=== PATIENT | male | born 1965 | race Caucasian/White ===

== ENCOUNTER → 2022-04-29 | Outpatient (CLI) | payer OTHER, SELFPAY ==
[2022-04-29 16:17] LABS: Bacteria 0 SEEN /hpf (None Seen); Mucous, Urine 0 SEEN /hpf (<or=2+); Red Blood Cells-Urine 0 SEEN /hpf (0-5); Squamous Epithelial Cells - UA 0 SEEN /hpf (0-5); White Blood Cells 0 SEEN /hpf (0-5)
[2022-04-29 17:45] LABS: Absolute Lymphocyte Count 12.48 X10^3/uL (0.83-4.51); Absolute Neutrophil Count 6.6 X10^3/uL (2.0-7.7); Basophil# 0.07 X10^3/uL; Basophil% 0.3 % (0-1); Eosinophil# 0.31 X10^3/uL; Eosinophils% 1.5 % (0-5); Hematocrit 42.8 % (40-54); Hemoglobin 14.2 g/dL (13.0-16.5); Lymphocyte # 12.48 X10^3/ul (0.83-4.51); Lymphocyte % 60.8 % (19-41); Mean Corp Hgb Conc 33.2 g/dL (32-36); Mean Corpuscular Hgb 31.1 pg (27.0-32.0); Mean Corpuscular Volume 93.7 fL (80-94); Mean Platelet Vol. 11.1 fl (6.2-12.0); Monocyte% 4.9 % (0-10); NRBC Flagged by Analyzer 0 % (0-5); Neutrophil # 6.61 X10^3/uL (2.7-7.7); Neutrophil % 32.3 % (47-70); POSITIVE DIFFERENTIAL YES; POSITIVE MORPHOLOGY YES; Platelet Count 206 K/mm3 (150-450); RBC Distribution Width CV 12.9 % (11.6-14.6); RBC Distribution Width SD 43.8 fl (35.1-43.9); Red Blood Count 4.57 M/mm3 (4.6-6.2); White Blood Count 20.5 K/mm3 (4.4-11.0)
[2022-04-29 17:52] LABS: Color, Urine Yellow (Yellow); Glucose, Dipstick Normal (Normal); Ketone-Dipstick Negative (Negative); Leukocyte Esterase-Dipstick Negative /ul (Negative); Nitrite-Dipstick Negative (Negative); Occult Blood-Urine Negative /ul (Negative); Protein-Dipstick Negative (Negative); Urine Bilirubin Dipstick Negative (Negative); Urine Clarity Clear (Clear); Urine Urobilinogen Normal (Normal)
[2022-04-29 18:07] LABS: Differential Indicated SCAN CRITERIA MET
[2022-04-29 18:24] LABS: Differential Comment SCANNED
[2022-04-29 18:28] LABS: ALB/GLOB Ratio 1.1 RATIO (0.9-2.4); AST(SGOT) 18 U/L (15-37); Alanine Aminotransfer ALT/SGPT 36 U/L (16-61); Albumin, Serum 3.7 g/dL (3.2-5.0); Alkaline Phosphatase 117 U/L (45-117); Anion Gap 8 (5-15); BUN 12 mg/dL (7-18); BUN/Creat Ratio 12.8 RATIO (10-20); Calcium,Total 8.7 mg/dL (8.5-10.1); Chloride 109 mmol/L (98-107); Cholesterol 145 mg/dL (200); Creatinine, Serum 0.94 mg/dL (0.70-1.30); EST Glomerular Filtration Rate 89 mL/min (>60); Est Glom Filt Rate - Afr Amer 107 mL/min (>60); Globulin 3.3 g/dL (2.2-4.2); Glucose 95 mg/dL (74-106); High Density Lipoprotein 31 mg/dL; Magnesium 2.2 mg/dL (1.6-2.6); PSA,Total - Annual Screen 0.54 ng/mL (0.00-4.00); Potassium 3.5 mmol/L (3.5-5.1); Sodium Level 140 mmol/L (136-145); Thyroid Stim Hormone (TSH) 1.13 uIU/mL (0.358-3.74); Triglycerides 257 mg/dL; Very Low Density Lipoprotein 51 mg/dL (5-40)
[2022-04-29 18:44] LABS: Atypical Lymphocyte 1+ %; Smudge Cells 1+
[2022-05-03 08:53] LABS: Pathologist Review Reviewed
== END | disposition home or self-care (01) ==
LOC: MTLAB 15:30
PROVIDERS: PCP Family Medicine; Referring Provider Family Medicine; Visit Provider Family Medicine
DX: F17.200 Nicotine dependence, unspecified, uncomplicated (principal); I10 Essential (primary) hypertension; Z12.5 Encounter for screening for malignant neoplasm of prostate
CPT/HCPCS: 36415; 80053; 80061; 81001; 83735; 84153; 84443; 85025; G0103

== ENCOUNTER → 2022-05-02 | Outpatient (CLI) | payer OTHER, SELFPAY ==
[2022-05-02 17:32] LABS: Absolute Lymphocyte Count 13.28 X10^3/uL (0.83-4.51); Absolute Neutrophil Count 6.4 X10^3/uL (2.0-7.7); Basophil# 0.08 X10^3/uL; Basophil% 0.4 % (0-1); Eosinophil# 0.26 X10^3/uL; Eosinophils% 1.2 % (0-5); Hematocrit 43.8 % (40-54); Hemoglobin 14.5 g/dL (13.0-16.5); Lymphocyte # 13.28 X10^3/ul (0.83-4.51); Lymphocyte % 62.9 % (19-41); Mean Corp Hgb Conc 33.1 g/dL (32-36); Mean Corpuscular Hgb 30.9 pg (27.0-32.0); Mean Corpuscular Volume 93.4 fL (80-94); Monocyte# 0.87 X10^3/uL; Monocyte% 4.1 % (0-10); NRBC Flagged by Analyzer 0 % (0-5); Neutrophil # 6.42 X10^3/uL (2.7-7.7); Neutrophil % 30.4 % (47-70); POSITIVE DIFFERENTIAL YES; POSITIVE MORPHOLOGY YES; Platelet Count 205 K/mm3 (150-450); RBC Distribution Width SD 43.9 fl (35.1-43.9); Red Blood Count 4.69 M/mm3 (4.6-6.2); White Blood Count 21.1 K/mm3 (4.4-11.0)
[2022-05-02 17:49] LABS: Differential Indicated SCAN CRITERIA MET
[2022-05-02 18:12] LABS: Differential Comment SCANNED; Smudge Cells RARE
== END | disposition home or self-care (01) ==
LOC: MFPLAB 15:39
PROVIDERS: PCP Family Medicine; Visit Provider Family Medicine
DX: D72.829 Elevated white blood cell count, unspecified (principal)
CPT/HCPCS: 36415; 85025

== ENCOUNTER → 2022-05-10 | Outpatient (CLI) | payer OTHER, SELFPAY ==
[2022-05-10 15:43] LABS: Absolute Lymphocyte Count 11.85 X10^3/uL (0.83-4.51); Absolute Neutrophil Count 5.3 X10^3/uL (2.0-7.7); Basophil# 0.06 X10^3/uL; Basophil% 0.3 % (0-1); Eosinophil# 0.19 X10^3/uL; Eosinophils% 1.1 % (0-5); Hematocrit 45.3 % (40-54); Hemoglobin 15.3 g/dL (13.0-16.5); Lymphocyte # 11.85 X10^3/ul (0.83-4.51); Lymphocyte % 65.7 % (19-41); Mean Corp Hgb Conc 33.8 g/dL (32-36); Mean Corpuscular Hgb 31.4 pg (27.0-32.0); Mean Platelet Vol. 10.9 fl (6.2-12.0); Monocyte# 0.61 X10^3/uL; Monocyte% 3.4 % (0-10); NRBC Flagged by Analyzer 0 % (0-5); Neutrophil # 5.27 X10^3/uL (2.7-7.7); Neutrophil % 29.2 % (47-70); POSITIVE DIFFERENTIAL YES; POSITIVE MORPHOLOGY YES; Platelet Count 215 K/mm3 (150-450); RBC Distribution Width CV 12.9 % (11.6-14.6); RBC Distribution Width SD 44.1 fl (35.1-43.9); Red Blood Count 4.87 M/mm3 (4.6-6.2)
[2022-05-10 15:58] LABS: Differential Indicated SCAN CRITERIA MET
[2022-05-10 16:41] LABS: Differential Comment SCANNED
== END | disposition home or self-care (01) ==
PROVIDERS: PCP Family Medicine; Referring Provider Family Medicine; Visit Provider Family Medicine
DX: D72.829 Elevated white blood cell count, unspecified (principal)
CPT/HCPCS: 36415; 85025

== ENCOUNTER → 2022-05-12 | Outpatient (CLI) | payer OTHER, SELFPAY ==
--- NOTE | 2022-05-12 07:52 | CT_ITS ---
STUDY: LOW DOSE CT LUNG CANCER SCREENING REASON FOR EXAM: Male, 56 years old. NICOTINE DEPENDENCY. 1PPD X 30 YEARS RADIATION DOSAGE (If Supplied By Facility): CTDIvol = ( 2.39 ) mGy, DLP = ( 89.95 ) mGycm TECHNIQUE: No contrast was administered. Low dose technique was utilized (average mAS-38 and kVp 120). 1.25 mm axial source images with a slice interval of 1.25-mm were reconstructed in lung windows. 2.5 mm axial source images with a slice interval of 2.5-mm were reconstructed in lung windows. 5.0 mm axial source images with a slice interval of 5.0-mm were reconstructed in soft tissue windows. COMPARISON: None. NODULES: No suspicious nodules are seen. Emphysema: Unremarkable Endobronchial lesion: Unremarkable Aorta: Unremarkable CORONARY ARTERIES: Coronary artery calcification is not seen. Heart: Unremarkable Pulmonary artery: Unremarkable Mediastinal nodes: Unremarkable Other chest and abdominal findings: CT/Low Dose CT Lung Screening IMPRESSION: Lung-RADS category 2 - Continue annual screening with LDCT in 12 months. IMPORTANT NOTES FOR USE: ACR Lung-RADS Version 1.1 Assessment Categories Release Date: 2018 Category: Coded 0-4 bases on nodule(s) with highest degree of suspicion. Negative screen is defined as categories 1 and 2; a positive screen is defined as categories 3 and 4. Category 3 and 4A nodules that are unchanged on interval CT should be coded as category 2, and individuals returned to screening in 12 months. Category 4X: Category 3 or 4 nodules with additional imaging findings that increase the suspicion of lung cancer, such as spiculation, GGN that doubles in size in 1 year, enlarged lymph notes, etc. Category Modifiers: S (significant finding unrelated to lung cancer) Electronically Signed: Juan Manuel Rivas MD at 15:19 EDT ,
== END | disposition home or self-care (01) ==
PROVIDERS: PCP Family Medicine; Referring Provider Family Medicine; Visit Provider Family Medicine
DX: F17.210 Nicotine dependence, cigarettes, uncomplicated (principal)
CPT/HCPCS: 71271

== ENCOUNTER 2022-07-22 07:36 | Day surgery (SDC) | payer OTHER, SELFPAY ==
[2022-07-22] VITALS (9 sets, daily range): BP systolic 112–164; BP diastolic 48–100; PULSE 54–67; RESP 16; TEMP 36.3–36.6; O2SAT 91–100; BMI 27.8
--- NOTE | 2022-07-22 | COLBX_PTH ---
PATIENT: MARCO A BRAY Jr. LOC: EN U#:[id number] AGE/SX: 56/M ROOM: RE07/22/[address]: Dr. Ankit Victor MD : 1965 BED: DIS: 07/22/2022 SPEC #: [id number] RECD: 07/22/22 13:17 STATUS: TUAN HURTADOPerry #: [id number] STEVE: 07/22/22 00:[address]: Ankit Victor DEPT: SURGICAL PATHOLOGY RECD BY: Gallo Luis ENTERED: 07/22/22 13:17 SP TYPE: COLON BX OTHR DR: Dr. Twan Do MD Tissues: Rectum, NOS Procedures: Surgery Specimen Level IV HEADER OPERATION: Colonoscopy ? open access (MAC), polypectomy and biopsy PRE-OP DIAGNOSIS: Screening TISSUE SUBMITTED: Rectal polyp biopsy MICROSCOPIC DIAGNOSIS Rectal polyp, polypectomy: Fragments of hyperplastic polyp. SJ:radha 07/25/2022 MICROSCOPIC DESCRIPTION Slides are reviewed. GROSS DESCRIPTION Received in fixative is one container labeled with the patient's name and designated rectal polyp biopsy. The specimen consists of multiple irregular fragments of light mahmood soft tissue that in aggregate measure 0.6 x 0.3 x 0.1 cm. The specimen is totally submitted in one cassette. / SJ:radha 07/22/2022 TC:1 CPT: 38934
[2022-07-22] MEDS: Lactated Ringers 1,000 ML 15 ML IV (07:59)
--- NOTE | 2022-07-22 08:59 | PCM.HP.STD ---
[facility] - General General Date of Service: 07/22/22 Chief Complaint: Screening for intestinal cancer HPI Narrative MARCO A BRAY, is a 56 M who presents via open access today for screening colonoscopy. He has never had a previous colonoscopy. There is no definitive family history of colon polyps or cancer. He denies abdominal pain or bright red blood per rectum or melena. He otherwise enjoys good health. [facility] Medical History (Updated 07/20/22 @ 13:37 by Kita Krueger) Blood disorder CLL (chronic lymphocytic leukemia) Former smoker History of ulceration HTN (hypertension) Wears dentures Home Medications NK 06/13/22 [History Last Taken Unknown] Allergy/AdvReac Type Severity Reaction Status Date / Time No Known Allergies Allergy Verified 07/22/22 07:52 Family History (Updated 06/13/22 @ 08:59 by Toshia Silver) Mother CVA (cerebral vascular accident) Father COPD (chronic obstructive pulmonary disease) Cardiac disease Surgical History (Updated 06/13/22 @ 08:58 by Toshia Silver) History of hand surgery Hx of cholecystectomy Hx of wisdom tooth extraction Social History (Updated 06/13/22 @ 09:00 by Toshia Silver) household members: spouse current occupational status: employed Smoking Status: Former smoker ROS Constitutional Constitutional: Reports systems reviewed and no addt'l complaints, except as documented Cardiovascular Cardiovascular: Denies chest pain Respiratory/Chest Respiratory/Chest: Denies shortness of breath at rest Gastrointestinal Gastrointestinal: Denies abdominal pain, change in bowel habits, hematochezia or melena Vital Signs Vital Signs Vital Signs: 07/22/22 07:52 07/22/22 07:52 Temperature 97.8 F Temperature Source Temporal Pulse Rate 54 L Respiratory Rate 16 Respiratory Pattern Normal Blood Pressure 164/92 H Blood Pressure Mean 116 Blood Pressure Source Monitor Blood Pressure Position Semi-Fowlers Blood Pressure Location Left Arm Pulse Ox 100 Oxygen Delivery Method Room Air Weight Weight: 188 lb 4.396 oz Body Mass Index (BMI) 27.8 Physical Exam Const alert, oriented x3 and no apparent distress General Appearance: cooperative and comfortable Eyes General Eye: normal appearance of both eyes Neck General: normal visual inspection Chest inspection of chest normal Resp Effort and Inspection: able to speak in complete sentences and symmetric chest movement Auscultation: clear to auscultation bilaterally Cardio regular rate and regular rhythm GI soft to palpation, non-tender and non-distended Extremity no calf tenderness Neuro oriented x3 Psych thought process normal Assessment & Plan Assessment/Plan (1) Encounter for screening for malignant neoplasm of colon: PLAN: The patient presents for screening colonoscopy today with possible biopsy or polypectomy as indicated. He is aware of the technique, benefit, risk, alternatives. He presents via open access today. We will proceed as noted. Ankit Victor M.D., F.A.C.S.
--- NOTE | 2022-07-22 09:37 | OP.COLON_ITS ---
Patient Name: Hero Alicia Procedure Date: 07/22/2022 9:01 AM Date of : 1965 Age: 56 Procedure: Colonoscopy Indications: Screening for colorectal malignant neoplasm Providers: Ankit Victor MD Referring MD: Ankit Victor MD Medicines: See the Anesthesia note for documentation of the administered medications Patient Profile: Last Colonoscopy: none. The patient's first colonoscopy is today. Complications: No immediate complications. Procedure: Pre-Anesthesia Assessment: - Prior to the procedure, a History and Physical was performed, and patient medications and allergies were reviewed. The patient's tolerance of previous anesthesia was also reviewed. The risks and benefits of the procedure and the sedation options and risks were discussed with the patient. All questions were answered, and informed consent was obtained. Prior Anticoagulants: The patient has taken no previous anticoagulant or antiplatelet agents. ASA Grade Assessment: II - A patient with mild systemic disease. After reviewing the risks and benefits, the patient was deemed in satisfactory condition to undergo the procedure. After I obtained informed consent, the scope was passed under direct vision. Throughout the procedure, the patient's blood pressure, pulse, and oxygen saturations were monitored continuously. The was introduced through the anus and advanced to the cecum, identified by appendiceal orifice and ileocecal valve. The colonoscopy was somewhat difficult due to a tortuous colon. The patient tolerated the procedure well. The quality of the bowel preparation was good. The ileocecal valve and the appendiceal orifice were photographed. Scope In: 9:13:13 AM Scope Withdrawal Time 0 hours 13 minutes 22 seconds Scope Out: 9:32:15 AM Total Procedure Duration Time 0 hours 19 minutes 2 seconds Findings: The digital rectal exam findings include non-thrombosed external hemorrhoids and internal hemorrhoids (Grade I). Pertinent negatives include normal prostate (size, shape, and consistency). A 4 mm polyp was found in the rectum. The polyp was sessile. The polyp was removed with a cold biopsy forceps. Resection and retrieval were complete. The colon (entire examined portion) was moderately tortuous. Advancing the scope required using manual pressure. Impression: - Non-thrombosed external hemorrhoids and internal hemorrhoids (Grade I) found on digital rectal exam. - One 4 mm polyp in the rectum, removed with a cold biopsy forceps. Resected and retrieved. - Tortuous colon. Recommendation: - Discharge patient to home. - Resume previous diet. - Continue present medications. - Repeat colonoscopy in 5 years for surveillance based on pathology results. - Telephone my office for pathology results in 1 week. Procedure Code(s): --- Professional --- 32669, Colonoscopy, flexible; with biopsy, single or multiple Diagnosis Code(s): --- Professional --- Z12.11, Encounter for screening for malignant neoplasm of colon K64.0, First degree hemorrhoids K64.4, Residual hemorrhoidal skin tags K62.1, Rectal polyp Q43.8, Other specified congenital malformations of intestine CPT copyright 2017 [employer]. All rights reserved. The codes documented in this report are preliminary and upon maintenance equipment operator review may be revised to meet current compliance requirements. Ankit Victor MD 07/22/2022 9:36:45 AM This report has been signed electronically. Number of Addenda: 0 Note Initiated On: 07/22/2022 9:01 AM
--- NOTE | 2022-07-22 09:38 | OP.CCLET_ITS ---
07/22/2022 Twan Do [address] [place] [address] Re : Colonoscopy procedure for Hero Maral Dear Dr. Do This procedure was performed on Friday, July 22, 2022. My impressions and recommendations are as follows: Impressions : - Non-thrombosed external hemorrhoids and internal hemorrhoids (Grade I) found on digital rectal exam. - One 4 mm polyp in the rectum, removed with a cold biopsy forceps. Resected and retrieved. - Tortuous colon. Recommendations : - Discharge patient to home. - Resume previous diet. - Continue present medications. - Repeat colonoscopy in 5 years for surveillance based on pathology results. - Telephone my office for pathology results in 1 week. My findings are described in the full procedure note, which is enclosed. If I can be of further assistance, please feel free to contact me at Doctor phone number(s): Work: . Sincerely, Ankit Victor MD 07/22/2022 9:36:45 AM This report has been signed electronically.
== END 2022-07-22 10:16 | disposition home or self-care (01) ==
LOC: EN 07:38 → AC 07:41
PROVIDERS: PCP Family Medicine; Referring Provider Family Medicine; Visit Provider Surgery
PROC: 0DJD8ZZ Inspection of Lower Intestinal Tract, Via Natural or Artificial Opening Endoscopic (ICD-10-PCS; CPT 45378; principal; 2022-07-22 08:40)
DX: Z12.11 Encounter for screening for malignant neoplasm of colon (principal); K64.4 Residual hemorrhoidal skin tags; K64.0 First degree hemorrhoids; K62.1 Rectal polyp; Z87.891 Personal history of nicotine dependence; I10 Essential (primary) hypertension; Q43.8 Other specified congenital malformations of intestine
CPT/HCPCS: 45380; 88305; J7120; J2405

== ENCOUNTER → 2023-03-03 | Outpatient (CLI) | payer OTHER, SELFPAY ==
[2023-03-03 16:31] LABS: Bacteria 0 SEEN /hpf (None Seen); Mucous, Urine 0 SEEN /hpf (<or=2+); Red Blood Cells-Urine 0 SEEN /hpf (0-5); Squamous Epithelial Cells - UA 0 SEEN /hpf (0-5); White Blood Cells 0 SEEN /hpf (0-5)
--- OUTSIDE RECORDS SUMMARY | 2023-03-03 16:33 | XMS RPT_ITS | CCD ---
Author Name Unknown Address [address] [place] [address] Organization [facility] Care Team Providers Care Appliance Technician Name Role Phone Unavailable Primary Care Provider John Turner MD Unavailable [phone] JOHN LONG Referring Unavailable SHIREEN HAY Referring Unavailable SHIREEN HAY Referring Unavailable SHIREEN HAY Attending Unavailable JOHN LONG Referring Unavailable JOHN LONG Attending Unavailable SHIREEN HAY Referring Unavailable JOHN LONG Attending Unavailable SHIREEN HAY Referring Unavailable SHIREEN HAY Attending Unavailable SHIREEN HAY Referring Unavailable SHIREEN HAY Referring Unavailable Medications Current Medications Medication Drug Class(es) Dates Sig (Normalized) Sig (Original) enteric contrast (will be provided with radiology test) (1 source) Start: 06-17-2022 End: 06-18-2022 enteric contrast (will be provided with radiology test) For CT CHESTABD/PEL W IVCON Routine order Administer, As Directed One Time Only, via Oral, Rectal, both Oral and Rectal, Enteric Tube, Stoma or Indwelling Catheter, Enteric Contrast as designated per enteric contrast guidelines 1 Each 0 06/17/2022 06/18/2022 Active Problems Problem Classification Problem Date Documented Da te Episodic/Chronic Leukemias (11 sources) Chronic lymphoid leukemia, disease; Translations: [Chronic lymphocytic leukemia of B-cell type not having achieved remission] Onset: 06-17-2022 06-17-2022 Chronic Non-Hodgkin`s lymphoma (9 sources) B-cell lymphoma (clinical); Translations: [Small cell B-cell lymphoma, unspecified site] Onset: 06-17-2022 06-17-2022 Chronic Other lower respiratory disease (2 sources) Multiple nodules of lung; Translations: [Other nonspecific abnormal finding of lung field] 08-24-2023 Episodic Other lower respiratory disease (1 source) Other nonspecific abnormal finding of lung field; Translations: [Lung nodules] Onset: 01-17-2023 Episodic Results Test Name Value Interpretation Reference Range Facil ity Vital Signs Date Time Vital Sign Value Performing Clinician Faci lity 10-06-2022 14:14-0400 Body temperature 97.81 [degF] John Long MD Work Phone: [facility] 10-06-2022 14:14-0400 Body weight 85.96 kg John Long MD Work Phone: [facility] 10-06-2022 14:14-0400 Diastolic blood pressure 86 mm[Hg] John Long MD Work Phone: [facility] 10-06-2022 14:14-0400 Heart rate 59 /min John Long MD Work Phone: [facility] 10-06-2022 14:14-0400 SaO2% (BldA) [Mass fraction] 96 % John Long MD Work Phone: [facility] 10-06-2022 14:14-0400 Systolic blood pressure 139 mm[Hg] John Long MD Work Phone: [facility] 06-17-2022 09:25-0400 Body height 172.7 cm Shireen Hay MD Work Phone: [facility] 06-17-2022 09:25-0400 Body temperature 97.81 [degF] Shireen Hay MD Work Phone: [facility] 06-17-2022 09:25-0400 Body weight 87.32 kg Shireen Hay MD Work Phone: [facility] 06-17-2022 09:25-0400 Diastolic blood pressure 91 mm[Hg] Shireen Hay MD Work Phone: [facility] 06-17-2022 09:25-0400 Heart rate 51 /min Shireen Hay MD Work Phone: [facility] 06-17-2022 09:25-0400 Systolic blood pressure 166 mm[Hg] Shireen Hay MD Work Phone: [facility] Encounters Encounter Date Encounter Type Care Provider Facility Start: 01-20-2023 End: 01-20-2023 ambulatory JOHN LONG Facility:[facility] Start: 01-20-2023 End: 01-20-2023 ambulatory John Long MD Work Phone: Hematology/Oncology Procedures Date Procedure Procedure Detail Performing Clinician Start: 06-24-2022 Ct abdomen & pelvis w/contrast material Shireen Hay MD Work Phone: Start: 06-24-2022 Ct thorax w/contrast material Shireen Hay MD Work Phone: Plan of Treatment Date Care Activity Detail Author Start: 01-18-2024 Influenza vaccination Lung Cancer [facility] Start: 06-25-2023 Influenza vaccination LUNG CANCER [facility] Start: 01-06-2023 End: 11-05-2023 Ct thorax w/o contrast material CT CHEST WO IVCON Radiology Routine Lung nodules Expected: 01/06/2023, Expires: 11/05/2023 [facility] Work Phone: Payers Date Payer Category Payer Private Health Insurance [facility] [employer] [id number] 2022-Present [phone] [address] [place] [address] HMO [id number] 2022 Unknown [id number] Social History Date Type Detail [facility] Work Phone: Start: 1965 Sex Assigned At Not on file [facility] Start: 06-17-2022 [facility] End: 05-14-2022 History of tobacco use Current smoker [facility] End: 05-14-2022 History of tobacco use Cigarette Smoker [facility] Start: 06-17-2022 End: 06-24-2022 Cigarettes smoked current (pack per day) - Reported 1 [facility] Start: 06-17-2022 Tobacco use and exposure Smokeless tobacco non-user [facility] Start: 10-06-2022 End: 01-20-2023 Alcohol intake Current drinker of alcohol (finding) [facility] Start: 06-24-2022 End: 10-06-2022 Tobacco use panel [facility] Adult Depression Screening Assessment 0 [facility] Start: 10-06-2022 Alcohol Comment occ [facility] Start: 1965 Sex Assigned At Male [facility] Start: 06-20-2022 Gender identity Identifies as male gender (finding) [facility] Start: 06-20-2022 Sexual orientation Heterosexual (fin ding) [facility] Clinical Notes 06-08-2022 to 01-20-2023 John Long MD - 01/20/2023 3:12 PM Bhumi Cruz LPN - 01/20/2023 2:55 PM [facility] Anjali Strange RT(R) - 01/17/2023 4:00 PM John Olivo MD - 10/06/2022 2:27 PM EDT Note Date & Type Note Facility 01-20-2023 Note HNO ID: [id number] Author: John Long MD Service: ? Author Type: Physician Type: Progress Notes Filed: 01/20/2023 3:51 PM Note Text: (Elements copied from my note datedAugu2022 , have been reviewed and updated where appropriate, and all reflect current assessment and medical decision making from today's encounter, January 20, 2023) HISTORY OF PRESENT ILLNESS: Marco A Bray is a 56 year old male. History lymphocytosis found on routine labs. Flow shows CLL Lung nodule noted on CT chest in June 2022 Here for follow up Follow up CT scan negative. WBC stable CLINICAL IMPRESSION: CLL, intermediate prognosis on FISH RECOMMENDATION/PLAN: 1. Recheck cbc in 6 months. Written and verbal health teaching given to patient, patient verbalizes understanding and agrees with treatment plan. PAST MEDICAL HISTORY Diagnosis Date Stomach ulcer PAST SURGICAL HISTORY Procedure Laterality Date REMOVAL GALLBLADDER FAMILY HISTORY Problem Relation Age of Onset Hypertension Mother Stroke Mother Heart Father Hypertension Sister Social History Tobacco Use Smoking status: Former Packs/day: 1.00 Years: 27.00 Additional pack years: 0.00 Total pack years: 27.00 Types: Cigarettes Quit date: 05/14/2022 Years since quittin.6 Smokeless tobacco: Never Vaping Use Vaping Use: Never used Substance Use Topics Alcohol use: Yes Comment: occ Drug use: Never ALLERGIES: ALLERGIES No Known Allergies CURRENT OUTPATIENT MEDICATIONS: No prescriptions on file. REVIEW OF SYSTEMS: GENERAL: No fever, night sweats, weight loss or malaise. All other reviewed and negative other than HPI. PHYSICAL EXAMINATION: VITAL SIGNS: There were no vitals taken for this visit. GENERAL APPEARANCE: Well appearing, in no acute distress, alert and oriented x3, well-hydrated, well nourished. No palpable adenopathy or splenomegaly I spent a total of 30 minutes on the date of the service which included preparing to see the patient, [id number] patient care, completing clinical documentation, obtaining and/or reviewing separately obtained history, performing a medically appropriate examination, counseling and educating the patient/family/caregiver, ordering medications, tests, or procedures, independently interpreting results (not separately reported), and communicating results to the patient/family/caregiver. Electronically Signed: John Long MD January 20, 2023 [facility] 01-20-2023 History of Present illness Narrative (Elements copied from my note 2022 , have been reviewed and updated where appropriate, and all reflect current assessment and medical decision making from today's encounter, January 20, 2023) HISTORY OF PRESENT ILLNESS: Marco A Bray is a 56 year old male. History lymphocytosis found on routine labs. Flow shows CLL Lung nodule noted on CT chest in June 2022 Here for follow up Follow up CT scan negative. WBC stable CLINICAL IMPRESSION: CLL, intermediate prognosis on FISH RECOMMENDATION/PLAN: 1. Recheck cbc in 6 months. Written and verbal health teaching given to patient, patient verbalizes understanding and agrees with treatment plan. PAST MEDICAL HISTORY Diagnosis Date Stomach ulcer PAST SURGICAL HISTORY Procedure Laterality Date REMOVAL GALLBLADDER FAMILY HISTORY Problem Relation Age of Onset Hypertension Mother Stroke Mother Heart Father Hypertension Sister Social History Tobacco Use Smoking status: Former Packs/day: 1.00 Years: 27.00 Additional pack years: 0.00 Total pack years: 27.00 Types: Cigarettes Quit date: 05/14/2022 Years since quittin.6 Smokeless tobacco: Never Vaping Use Vaping Use: Never used Substance Use Topics Alcohol use: Yes Comment: occ Drug use: Never ALLERGIES: ALLERGIES No Known Allergies CURRENT OUTPATIENT MEDICATIONS: No prescriptions on file. REVIEW OF SYSTEMS: GENERAL: No fever, night sweats, weight loss or malaise. All other reviewed and negative other than HPI. PHYSICAL EXAMINATION: VITAL SIGNS: There were no vitals taken for this visit. GENERAL APPEARANCE: Well appearing, in no acute distress, alert and oriented x3, well-hydrated, well nourished. No palpable adenopathy or splenomegaly I spent a total of 30 minutes on the date of the service which included preparing to see the patient, [id number] patient care, completing clinical documentation, obtaining and/or reviewing separately obtained history, performing a medically appropriate examination, counseling and educating the patient/family/caregiver, ordering medications, tests, or procedures, independently interpreting results (not separately reported), and communicating results to the patient/family/caregiver. Electronically Signed: John Long MD January 20, 2023 documented in this encounter [facility] 01-20-2023 Nurse Note Est. Pt. Discuss recent CT scan and lab results. Bhumi Garcia LPN documented in this encounter [facility] 01-17-2023 Miscellaneous Notes Radiology Service Progress Note PATIENT NAME: Marco A Bray DATE OF SERVICE: January 17, 2023 TIME: 4:13 PM PATIENT IDENTITY VERIFICATION COMPLETED USING TWO (2) IDENTIFIERS: Name and Date of confirmed by patient verbally. FALL SCREENING: Has the patient had 2 falls in the last year or 1 fall with injury or currently using an Ambulatory Assistive Device (Walker, Cane, Wheelchair, Crutches, etc.)? No PATIENT GENDER DATA: Male PATIENT RELEVANT IMPLANT DATA REVIEWED: Not Applicable RADIOLOGY DEPARTMENT: CT; Exam(s) Completed: Chest PERIPHERAL IV DATA: Not applicable SIGNED BY: RT Yohana(R) January 17, 2023 4:13 PM documented in this encounter [facility] 10-06-2022 Note HNO ID: [id number] Author: John Long MD Service: ? Author Type: Physician Type: Progress Notes Filed: 10/06/2022 4:31 PM Note Text: HISTORY OF PRESENT ILLNESS: Marc oA Bray is a 56 year old male. History lymphocytosis found on routine labs. Flow shows CLL Lung nodule noted on CT chest in June 2022 CLINICAL IMPRESSION: CLL, FISH pending RECOMMENDATION/PLAN: 1. Recheck in [address] chest in December to follow up lung nodule. Written and verbal health teaching given to patient, patient verbalizes understanding and agrees with treatment plan. PAST MEDICAL HISTORY Diagnosis Date Stomach ulcer PAST SURGICAL HISTORY Procedure Laterality Date REMOVAL GALLBLADDER FAMILY HISTORY Problem Relation Age of Onset Hypertension Mother Stroke Mother Heart Father Hypertension Sister Social History Tobacco Use Smoking status: Former Packs/day: 1.00 Years: 27.00 Additional pack years: 0.00 Total pack years: 27.00 Types: Cigarettes Quit date: 05/14/2022 Years since quittin.3 Smokeless tobacco: Never Vaping Use Vaping Use: Never used Substance Use Topics Alcohol use: Yes Comment: occ Drug use: Never ALLERGIES: ALLERGIES No Known Allergies CURRENT OUTPATIENT MEDICATIONS: No prescriptions on file. REVIEW OF SYSTEMS: GENERAL: No fever, night sweats, weight loss or malaise. All other reviewed and negative other than HPI. PHYSICAL EXAMINATION: VITAL SIGNS: BP 139/86 Pulse 59 Temp 97.8 Wt 189 lb 8 oz (86.0kg) SpO2 96% GENERAL APPEARANCE: Well appearing, in no acute distress, alert and oriented x3, well-hydrated, well nourished. No palpable adenopathy or splenomegaly I spent a total of 45 minutes on the date of the service which included preparing to see the patient, [id number] patient care, completing clinical documentation, obtaining and/or reviewing separately obtained history, performing a medically appropriate examination, counseling and educating the patient/family/caregiver, ordering medications, tests, or procedures, independently interpreting results (not separately reported), and communicating results to the patient/family/caregiver. Electronically Signed: John Long MD October 06, 2022 2:27 PM [facility] 10-06-2022 History of Present illness Narrative HISTORY OF PRESENT ILLNESS: Marco A Bray is a 56 year old male. History lymphocytosis found on routine labs. Flow shows CLL Lung nodule noted on CT chest in June 2022 CLINICAL IMPRESSION: CLL, FISH pending RECOMMENDATION/PLAN: 1. Recheck in [address] chest in December to follow up lung nodule. Written and verbal health teaching given to patient, patient verbalizes understanding and agrees with treatment plan. PAST MEDICAL HISTORY Diagnosis Date Stomach ulcer PAST SURGICAL HISTORY Procedure Laterality Date REMOVAL GALLBLADDER FAMILY HISTORY Problem Relation Age of Onset Hypertension Mother Stroke Mother Heart Father Hypertension Sister Social History Tobacco Use Smoking status: Former Packs/day: 1.00 Years: 27.00 Additional pack years: 0.00 Total pack years: 27.00 Types: Cigarettes Quit date: 05/14/2022 Years since quittin.3 Smokeless tobacco: Never Vaping Use Vaping Use: Never used Substance Use Topics Alcohol use: Yes Comment: occ Drug use: Never ALLERGIES: ALLERGIES No Known Allergies CURRENT OUTPATIENT MEDICATIONS: No prescriptions on file. REVIEW OF SYSTEMS: GENERAL: No fever, night sweats, weight loss or malaise. All other reviewed and negative other than HPI. PHYSICAL EXAMINATION: VITAL SIGNS: BP 139/86 Pulse 59 Temp 97.8 Wt 189 lb 8 oz (86.0kg) SpO2 96% GENERAL APPEARANCE: Well appearing, in no acute distress, alert and oriented x3, well-hydrated, well nourished. No palpable adenopathy or splenomegaly I spent a total of 45 minutes on the date of the service which included preparing to see the patient, [id number] patient care, completing clinical documentation, obtaining and/or reviewing separately obtained history, performing a medically appropriate examination, counseling and educating the patient/family/caregiver, ordering medications, tests, or procedures, independently interpreting results (not separately reported), and communicating results to the patient/family/caregiver. Electronically Signed: John Long MD October 06, 2022 2:27 PM documented in this encounter [facility] 07-08-2022 Note HNO ID: [id number] Author: Shireen Hay MD Service: ? Author Type: Physician Type: Progress Notes Filed: 07/08/2022 2:38 PM Note Text: [facility] Progress Note SERVICE DATE: July 08, 2022 HISTORY OF PRESENT ILLNESS: Marco A Bray is a pleasant 56-year-old male who presented with elevated WBC and lymphocytes, with smudge cells present suspicious for CLL. He denies fever, chills, night's, or weight loss. He felt a small lymph node on the left side of his neck, but CT chest abdomen pelvis showed no lymphadenopathy. 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 REVIEW OF SYSTEMS: Review of Systems Constitutional: Negative for chills, diaphoresis, fatigue, fever and unexpected weight change. HENT: Negative for lump/mass and mouth sores. Respiratory: Negative for cough, hemoptysis and shortness of breath. Cardiovascular: Negative for chest pain, leg swelling and palpitations. Gastrointestinal: Negative for abdominal pain, blood in stool, constipation and diarrhea. Genitourinary: Negative for dysuria, frequency and hematuria. Musculoskeletal: Negative for arthralgias and back pain. Skin: Negative for rash. Neurological: Negative for dizziness and headaches. Hematological: Negative for adenopathy. Does not bruise/bleed easily. Psychiatric/Behavioral: Negative for confusion and decreased concentration. The patient is not nervous/anxious. PHYSICAL EXAM: BP 157/92 Pulse 52 Temp 36.4 ?C (97.5 ?F) (Temporal) Wt 87.3 kg (192 lb 8 oz) BMI 29.27 kg/m2 Body mass index is 29.27 kg/m?. Estimated body surface area is 2.05 meters squared as calculated from the following: Height as of 06/17/22: 172.7 cm (5' 8 ). Weight as of this encounter: 87.3 kg (192 lb 8 oz). ECO- Fully active, able to carry on all pre-disease performance w/o restriction. Physical Exam Vitals reviewed. Constitutional: Appearance: Normal appearance. He is normal weight. HENT: Head: Normocephalic and atraumatic. Nose: Nose normal. Eyes: Conjunctiva/sclera: Conjunctivae normal. Cardiovascular: Rate and Rhythm: Normal rate and regular rhythm. Pulmonary: Effort: Pulmonary effort is normal. Breath sounds: Normal breath sounds. Abdominal: General: There is no distension. Palpations: Abdomen is soft. Tenderness: There is no abdominal tenderness. Musculoskeletal: General: Normal range of motion. Cervical back: Normal range of motion and neck supple. Right lower leg: No edema. Left lower leg: No edema. Skin: Coloration: Skin is not jaundiced. Findings: No rash. Neurological: General: No focal deficit present. Mental Status: He is alert and oriented to person, place, and time. Psychiatric: Mood and Affect: Mood normal. Behavior: Behavior normal. LABS: FLOW CYTOMETRY PERIPHERAL BLOOD LEUK/LYMPH (FCLEUK) REFLEX: [id number] Order: [id number] - Reflex for Order [id number] Collected 06/17/2022 10:24 AM Status: Final result Visible to patient: Yes (seen) Dx: CLL (chronic lymphocytic leukemia) (H... 0 Result Notes Component Interpretation The findings are diagnostic of involvement by a CD5 positive small B-cell lymphoproliferative disorder. The immunophenotype is consistent with chronic lymphocytic leukemia/small lymphocytic lymphoma (CLL/SLL). Correlation with the clinical findings is suggested. IMPRESSION: Marco A Bray is a 56 year old male diagnosed with CLL/SLL. He is asymptomatic clinically. There are no clinical indications for treatment, such as progressive lymphocytosis, bulky lymph nodes, bulky splenomegaly, bone marrow failure, or constitutional symptoms. Clinical surveillance will be recommended. PLAN: He will come back in 3 months for follow-up with repeat CBC and differential, and FISH. Shireen Hay MD cc: No primary care provider on file. [facility] 06-24-2022 Note HNO ID: [id number] Author: RT Damir(R) Service: ? Author Type: Firestopper Technician Type: Progress Notes Filed: 06/24/2022 4:14 PM Note Text: Radiology Service Progress Note DATE OF SERVICE: June 24, 2022 TIME: 4:14 PM PATIENT IDENTITY VERIFICATION COMPLETED USING TWO (2) STANDARD IDENTIFIERS: Name and Date of confirmed by patient verbally. FALL SCREENING: Has the patient had 2 falls in the last year or 1 fall with injury or currently using an Ambulatory Assistive Device (Walker, Cane, Wheelchair, Crutches, etc.)? No PATIENT GENDER DATA: Male PATIENT RELEVANT IMPLANT DATA REVIEWED: Yes ALLERGIES: Reviewed and unchanged CONTRAST ALLERGY: NO. EXAM: CT -CONTRAST INDUCED NEPHROPATHY RISK FACTORS: Not applicable CREATININE: No results found for: CREAT, EGFROTH, EGFRAA P.O.C.T. RESULTS: POC done: Yes, See Lab Tab June 24, 2022 TREATMENT: N/A PERIPHERAL IV DATA: Ambulatory: A peripheral IV was started in the Left antecubital site with a Angio cath: 22 gauge. RADIOLOGY DEPARTMENT: CT; Exam(s) Completed: Chest Abdomen Pelvis SIGNATURE: RT Frank(R) PATIENT NAME: Marco A Bray DATE: June 24, 2022 TIME: 4:14 PM [facility] 06-24-2022 History of Present illness Narrative Radiology Service Progress Note DATE OF SERVICE: June 24, 2022 TIME: 4:14 PM PATIENT IDENTITY VERIFICATION COMPLETED USING TWO (2) STANDARD IDENTIFIERS: Name and Date of confirmed by patient verbally. FALL SCREENING: Has the patient had 2 falls in the last year or 1 fall with injury or currently using an Ambulatory Assistive Device (Walker, Cane, Wheelchair, Crutches, etc.)? No PATIENT GENDER DATA: Male PATIENT RELEVANT IMPLANT DATA REVIEWED: Yes ALLERGIES: Reviewed and unchanged CONTRAST ALLERGY: NO. EXAM: CT -CONTRAST INDUCED NEPHROPATHY RISK FACTORS: Not applicable CREATININE: No results found for: CREAT, EGFROTH, EGFRAA P.O.C.T. RESULTS: POC done: Yes, See Lab Tab June 24, 2022 TREATMENT: N/A PERIPHERAL IV DATA: Ambulatory: A peripheral IV was started in the Left antecubital site with a Angio cath: 22 gauge. RADIOLOGY DEPARTMENT: CT; Exam(s) Completed: Chest Abdomen Pelvis SIGNATURE: RT Frank(R) PATIENT NAME: Marco A Bray DATE: June 24, 2022 TIME: 4:14 PM documented in this encounter [facility] 06-17-2022 Note HNO ID: [id number] Author: Shireen Hay MD Service: ? Author Type: Physician Type: Progress Notes Filed: 06/17/2022 11:04 AM Note Text: [facility] Hematology Consult Note SERVICE DATE: June 17, 2022 CHIEF COMPLAINT: Marco A Bray is a 56 year old male referred by Dr. Twan Do , for my opinion regarding the management of CLL/SLL. My findings and recommendations will be communicated back to Dr. Do via EMR. History was obtained from the patient and from review of the patient's old medical records. HISTORY OF PRESENT ILLNESS: Marco A Bray is a pleasant 56-year-old male who has been very healthy all his life, nor does he take any prescription medication. He establish primary care with Dr. Twan Do recently and routine lab work 04/29/2022 showed WBC 20.5, abs lymphocytes 4.48. There were also smudge cells present, suspicious for CLL. To repeat CBC on 05/02/2022 and 05/10/2022 showed persistently elevated WBC and lymphocytes. Therefore he is referred to [facility] [place] for further evaluation. Clinically he has been doing well without any new complaints. He denies fever, chills, night's, or weight loss. He felt a small lymph node on the left side of his neck. PAST MEDICAL HISTORY: PAST MEDICAL HISTORY Diagnosis Date Stomach ulcer PAST SURGICAL HISTORY: PAST SURGICAL HISTORY Procedure Laterality Date REMOVAL GALLBLADDER CURRENT MEDICATIONS: iv contrast (will be provided with radiology test) CT Chest ABD/PEL-Inject, intravenously, once for 1 dose.No IV access, insert saline lock prior to the beginning of sedation, infusion, injection of imaging exam. Discontinue saline lock post exam. If Pt. has a central line or IVAD, may access for administration according to line specific nursing protocol. Once exam is complete flush line and de-access according to line specific nursing protocol in the CT contrast administration guidelines link. enteric contrast (will be provided with radiology test) For CT CHESTABD/PEL W IVCON Routine order Administer, As Directed One Time Only, via Oral, Rectal, both Oral and Rectal, Enteric Tube, Stoma or Indwelling Catheter, Enteric Contrast as designated per enteric contrast guidelines ALLERGIES/INTOLERANCES: ALLERGIES No Known Allergies FAMILY HISTORY: FAMILY HISTORY Problem Relation Age of Onset Hypertension Mother Stroke Mother Heart Father Hypertension Sister SOCIAL HISTORY: Social History Tobacco Use Smoking status: Former Packs/day: 1.00 Years: 27.00 Pack years: 27.00 Types: Cigarettes Quit date: 05/14/2022 Years since quittin.0 Smokeless tobacco: Never Review of Systems Constitutional: Negative for chills, fatigue, fever and unexpected weight change. HENT: Positive for lump/mass. Negative for nosebleeds and trouble swallowing. Eyes: Negative for icterus. Respiratory: Negative for cough, hemoptysis and shortness of breath. Cardiovascular: Negative for chest pain, leg swelling and palpitations. Gastrointestinal: Negative for abdominal pain, blood in stool, constipation and diarrhea. Genitourinary: Negative for dysuria, frequency and hematuria. Musculoskeletal: Negative for gait problem. Skin: Negative for rash. Neurological: Negative for dizziness, gait problem, light-headedness and numbness. Hematological: Positive for adenopathy. Does not bruise/bleed easily. Psychiatric/Behavioral: Negative for confusion. The patient is not nervous/anxious. PHYSICAL EXAM: BP 166/91 Pulse 51 Temp 36.6 ?C (97.8 ?F) (Temporal) Ht 172.7 cm (5' 8 ) Wt 87.3 kg (192 lb 8 oz) BMI 29.27 kg/m2 Body mass index is 29.27 kg/m?. ECO- Fully active, able to carry on all pre-disease performance w/o restriction. Physical Exam Vitals reviewed. Constitutional: Appearance: Normal appearance. He is normal weight. HENT: Head: Normocephalic and atraumatic. Nose: Nose normal. Eyes: Conjunctiva/sclera: Conjunctivae normal. Cardiovascular: Rate and Rhythm: Normal rate and regular rhythm. Pulmonary: Effort: Pulmonary effort is normal. No respiratory distress. Breath sounds: Normal breath sounds. No wheezing. Abdominal: General: Abdomen is flat. There is no distension. Palpations: Abdomen is soft. There is no mass. Tenderness: There is no abdominal tenderness. Musculoskeletal: General: Normal range of motion. Cervical back: Normal range of motion and neck supple. Right lower leg: No edema. Left lower leg: No edema. Skin: Coloration: Skin is not jaundiced. Findings: No rash. Neurological: General: No focal deficit present. Mental Status: He is alert and oriented to person, place, and time. Cranial Nerves: No cranial nerve deficit. Motor: No weakness. Gait: Gait normal. Psychiatric: Mood and Affect: Mood normal. Behavior: Behavior normal. DATA REVIEW: I personally reviewed the patient's data and medical recor (more content not included)... [facility] 06-17-2022 History of Present illness Narrative Images from the original note were not included. [facility] Hematology Consult Note SERVICE DATE: June 17, 2022 CHIEF COMPLAINT: Marco A Bray is a 56 year old male referred by Dr. Twan Do , for my opinion regarding the management of CLL/SLL. My findings and recommendations will be communicated back to Dr. Do via EMR. History was obtained from the patient and from review of the patient's old medical records. HISTORY OF PRESENT ILLNESS: Marco A Bray is a pleasant 56-year-old male who has been very healthy all his life, nor does he take any prescription medication. He establish primary care with Dr. Twan Do recently and routine lab work 04/29/2022 showed WBC 20.5, abs lymphocytes 4.48. There were also smudge cells present, suspicious for CLL. To repeat CBC on 05/02/2022 and 05/10/2022 showed persistently elevated WBC and lymphocytes. Therefore he is referred to [facility] [place] for further evaluation. Clinically he has been doing well without any new complaints. He denies fever, chills, night's, or weight loss. He felt a small lymph node on the left side of his neck. PAST MEDICAL HISTORY: PAST MEDICAL HISTORY Diagnosis Date Stomach ulcer PAST SURGICAL HISTORY: PAST SURGICAL HISTORY Procedure Laterality Date REMOVAL GALLBLADDER CURRENT MEDICATIONS: iv contrast (will be provided with radiology test) CT Chest ABD/PEL-Inject, intravenously, once for 1 dose.No IV access, insert saline lock prior to the beginning of sedation, infusion, injection of imaging exam. Discontinue saline lock post exam. If Pt. has a central line or IVAD, may access for administration according to line specific nursing protocol. Once exam is complete flush line and de-access according to line specific nursing protocol in the CT contrast administration guidelines link. enteric contrast (will be provided with radiology test) For CT CHESTABD/PEL W IVCON Routine order Administer, As Directed One Time Only, via Oral, Rectal, both Oral and Rectal, Enteric Tube, Stoma or Indwelling Catheter, Enteric Contrast as designated per enteric contrast guidelines ALLERGIES/INTOLERANCES: ALLERGIES No Known Allergies FAMILY HISTORY: FAMILY HISTORY Problem Relation Age of Onset Hypertension Mother Stroke Mother Heart Father Hypertension Sister SOCIAL HISTORY: Social History Tobacco Use Smoking status: Former Packs/day: 1.00 Years: 27.00 Pack years: 27.00 Types: Cigarettes Quit date: 05/14/2022 Years since quittin.0 Smokeless tobacco: Never Review of Systems Constitutional: Negative for chills, fatigue, fever and unexpected weight change. HENT: Positive for lump/mass. Negative for nosebleeds and trouble swallowing. Eyes: Negative for icterus. Respiratory: Negative for cough, hemoptysis and shortness of breath. Cardiovascular: Negative for chest pain, leg swelling and palpitations. Gastrointestinal: Negative for abdominal pain, blood in stool, constipation and diarrhea. Genitourinary: Negative for dysuria, frequency and hematuria. Musculoskeletal: Negative for gait problem. Skin: Negative for rash. Neurological: Negative for dizziness, gait problem, light-headedness and numbness. Hematological: Positive for adenopathy. Does not bruise/bleed easily. Psychiatric/Behavioral: Negative for confusion. The patient is not nervous/anxious. PHYSICAL EXAM: BP 166/91 Pulse 51 Temp 36.6 C (97.8 F) (Temporal) Ht 172.7 cm (5' 8 ) Wt 87.3 kg (192 lb 8 oz) BMI 29.27 kg/m2 Body mass index is 29.27 kg/m . ECO- Fully active, able to carry on all pre-disease performance w/o restriction. Physical Exam Vitals reviewed. Constitutional: Appearance: Normal appearance. He is normal weight. HENT: Head: Normocephalic and atraumatic. Nose: Nose normal. Eyes: Conjunctiva/sclera: Conjunctivae normal. Cardiovascular: Rate and Rhythm: Normal rate and regular rhythm. Pulmonary: Effort: Pulmonary effort is normal. No respiratory distress. Breath sounds: Normal breath sounds. No wheezing. Abdominal: General: Abdomen is flat. There is no distension. Palpations: Abdomen is soft. There is no mass. Tenderness: There is no abdominal tenderness. Musculoskeletal: General: Normal range of motion. Cervical back: Normal range of motion and neck supple. Right lower leg: No edema. Left lower leg: No edema. Skin: Coloration: Skin is not jaundiced. Findings: No rash. Neurological: General: No focal deficit present. Mental Status: He is alert and oriented to person, place, and time. Cranial Nerves: No cranial nerve deficit. Motor: No weakness. Gait: Gait normal. Psychiatric: Mood and Affect: Mood normal. Behavior: Behavior normal. DATA REVIEW: I personally reviewed the patient's data and medical records. IMPRESSION: This is a 56-year-old male who presented with leukocytosis and lymphocytosis. There are no prior labs to compare with therefore the lymphocyte doubling time is unknown. There are no anemia, thrombocytopenia, or splenomegaly. Clinically, chronic lymphocytic leukemia/small neoplasm lymphoma is highly suspected. I have talked with the patient and his in detail about the diagnosis of CLL/SLL, stage, prognosis, and surveillance versus treatment. At present he has Horan stage 0 or 1 CLL/SLL, depending on the CT scans. Usually clinical surveillance is recommended in the beginning. The indications for treatment would be anemia, thrombocytopenia, beer fatigue/weight loss, bulky adenopathy, or rapidly rising lymphocytes. Plan Flow cytometry of peripheral blood. FISH panel for CLL/SLL. CT chest abdomen and pelvis. Follow-up after all tests are resulted. The patient was able to ask questions and these were answered in detail. Thank you for the opportunity of participating in the care of this delightful gentleman. I spent 45 minutes on this case and greater than 50% total dedicated to [id number] counseling and patient care coordination. Shireen Hay MD cc: No primary care provider on file. documented in this encounter [facility] 06-08-2022 Miscellaneous Notes Patient returned call and scheduled. I called and left patient a message for patient to call back to schedule his new patient visit with Dr.Michael Hay. stated patient should be scheduled if able for next week Monday06/17/2022. When patient calls back please schedule new patient visit and then note and close encounter. Shannan Montalvo Per patient is to see for new patient appointment on Monday06/17/2022. We have patient's information in the waiting for info folder because we have to wait for 's schedule to be opened here before we can schedule the appointment. Shannan Belcher Pss Referral received and placed in Dr. Guevara's mailbox for review. Leydi Jacob LPN Spouse called stating [facility] was to send referral a week ago to office - dx - leukemia. Please advise if we received referral. Patient is getting anxious. documented in this encounter [facility] Lung nodules- Primary Other nonspecific abnormal finding of lung field CLL (chronic lymphocytic leukemia) (HCC) Chronic lymphoid leukemia, without mention of having achieved remission [facility] Lung nodules Other nonspecific abnormal finding of lung field [facility] Diagnosis CLL (chronic lymphocytic leukemia) (HCC)- Primary Chronic lymphoid leukemia, without mention of having achieved remission documented in this encounter [facility] Reason for Referral Specialty Diagnoses / Procedures Referred By Jorge t Referred To Contact CT IMAGING Diagnoses Lymphoblastic lymphoma, unspecified body region (HCC) Procedures CT CHEST W IVCON DIAGNOSTIC COMPUTED TOMOGRAPHY THORAX W/CONTRAST Shireen Hay MD [address] [email or web address] [address] Ct Imaging Referral ID Status Reason Start Date Expiration Date Visits Requested Visits Authorized [id number] Authorized Auto-Generat ed Referral 06/17/2022 07/17/2023 1 1 Specialty Diagnoses / Procedures Referred By Jorge cavanaugh Referred To Contact CT IMAGING Diagnoses Lymphoblastic lymphoma, unspecified body region (HCC) Procedures CT ABD/PEL W IVCON CT ABD & PELVIS W/CONTRAST Shireen Hay MD [address] [place] [address] Ct Imaging Referral ID Status Reason Start Date Expiration Date Visits Requested Visits Authorized [id number] Authorized Auto-Generat ed Referral 06/17/2022 07/17/2023 1 1 Specialty Diagnoses / Procedures Referred By Contac t Referred To Contact CT IMAGING Diagnoses Lung nodules Procedures CT CHEST WO IVCON DIAGNOSTIC COMPUTED TOMOGRAPHY THORAX W/[place] [address] [place] [address] [address] [facility] [place] [address] Referral ID Status Reason Start Date Expiration Date Visits Requested Visits Authorized [id number] Authorized Auto-Generat ed Referral 11/05/2023 1 1 Specialty Diagnoses / Procedures Referred By Contac t Referred To Contact CT IMAGING Diagnoses Lymphoblastic lymphoma, unspecified body region (HCC) Procedures CT CHEST W IVCON DIAGNOSTIC COMPUTED TOMOGRAPHY THORAX W/CONTRAST Shireen Hay MD [address] [place] [address] Ct [facility] [place] [address] Referral ID Status Reason Start Date Expiration Date V isits Requested Visits Authorized [id number] Closed Auto-Generate d Referral 06/17/2022 07/17/2023 1 1 Specialty Diagnoses / Procedures Referred By Contac t Referred To Contact CT IMAGING Diagnoses Lymphoblastic lymphoma, unspecified body region (HCC) Procedures CT ABD/PEL W IVCON CT ABD & PELVIS W/CONTRAST Shireen Hay MD [address] [place] [address] Ct [facility] [place] [address] Referral ID Status Reason Start Date Expiration Date V isits Requested Visits Authorized [id number] Closed Auto-Generate d Referral 06/17/2022 07/17/2023 1 1 Summary Purpose Family History No Family History Records FoundNo Family History Records Found Advance Directives No Advanced Directives Records FoundNo Advanced Directives Records Found Additional Source Comments Source Comments (unrecognize d section and content) In the event this informatio n is protected by the Federal Confidentiality of Alcohol and Drug Abuse Patient Records regulations: The Federal rules restrict any use of the information to criminally investigate or prosecute any alcohol or drug abuse patient.[facility] event this information is protected by the Federal Confidentiality of Alcohol and Drug Abuse Patient Records regulations: The Federal rules restrict any use of the information to criminally investigate or prosecute any alcohol or drug abuse patient.[facility] the event this information is protected by the Federal Confidentiality of Alcohol and Drug Abuse Patient Records regulations: The Federal rules restrict any use of the information to criminally investigate or prosecute any alcohol or drug abuse patient.[facility] the event this information is protected by the Federal Confidentiality of Alcohol and Drug Abuse Patient Records regulations: The Federal rules restrict any use of the information to criminally investigate or prosecute any alcohol or drug abuse patient.[facility] the event this information is protected by the Federal Confidentiality of Alcohol and Drug Abuse Patient Records regulations: The Federal rules restrict any use of the information to criminally investigate or prosecute any alcohol or drug abuse patient.[facility] the event this information is protected by the Federal Confidentiality of Alcohol and Drug Abuse Patient Records regulations: The Federal rules restrict any use of the information to criminally investigate or prosecute any alcohol or drug abuse patient.[facility] the event this information is protected by the Federal Confidentiality of Alcohol and Drug Abuse Patient Records regulations: The Federal rules restrict any use of the information to criminally investigate or prosecute any alcohol or drug abuse patient.[facility] the event this information is protected by the Federal Confidentiality of Alcohol and Drug Abuse Patient Records regulations: The Federal rules restrict any use of the information to criminally investigate or prosecute any alcohol or drug abuse patient.[facility] Reason for Visit (unrecogniz ed section and content) Reason Comments New Patient Evaluation Reason Comments Established Patient Reason Comments Radiology CT Specialty Diagnoses / Procedures Referred By Contac t Referred To Contact CT IMAGING Diagnoses Lymphoblastic lymphoma, unspecified body region (HCC) Procedures CT CHEST W IVCON DIAGNOSTIC COMPUTED TOMOGRAPHY THORAX W/CONTRAST Shireen Hay MD [address] [place] [address] [place] [address] Referral ID Status Reason Start Date Expiration Date V isits Requested Visits Authorized [id number] Closed Auto-Generate d Referral 06/17/2022 07/17/2023 1 1 Specialty Diagnoses / Procedures Referred By Contac t Referred To Contact CT IMAGING Diagnoses Lung nodules Procedures CT CHEST WO IVCON DIAGNOSTIC COMPUTED TOMOGRAPHY THORAX W/[place] [address] [place] [address] [address] [facility] [place] [address] Referral ID Status Reason Start Date Expiration Date V isits Requested Visits Authorized [id number] Closed Auto-Generate d Referral 01/06/2023 11/05/2023 1 1 Reason Comments Established Patient Care Teams (unrecognized sec tion and content) Appliance Technician Relationship Specialty Start Date End Date John Long MD [address] [place], [place] [id number] Hematology/Oncology 10/06/22 Appliance Technician Relationship Specialty Start Date End Date John Long MD [address] [facility] [place], [place] [id number] Hematology/Oncology 10/06/22 (unrecognized sect ion and content) No Status Records FoundNo Status Records Found INFORMATION SOURCE (unrecogn ized section and content) DATE CREATED AUTHOR AUTHOR'S ORGANIZ ATION 01/23/2023 [facility] FOR RECORDS PERTAINING TO PATIENTS WHO ARE OR HAVE BEEN ENROLLED IN A CHEMICAL DEPENDENCY/SUBSTANCEABUSE PROGRAM, SOME INFORMATION MAY BE OMITTED. This clinical summary was aggregated from multiple sources. Caution should be exercised in using it in the provision of clinical care. This summary normalizes information from multiple sources, and as a consequence, information in this document may materially change the coding, format and clinical context of patient data. In addition, data may be omitted in some cases. CLINICAL DECISIONS SHOULD BE BASED ON THE PRIMARY CLINICAL RECORDS. [facility] [facility]. provides no warranty or guarantee of the accuracy or completeness of information in this document.
[2023-03-03 17:30] LABS: Absolute Lymphocyte Count 14.85 X10^3/uL (0.83-4.51); Absolute Neutrophil Count 4.5 X10^3/uL (2.0-7.7); Basophil# 0.07 X10^3/uL; Basophil% 0.3 % (0-1); Eosinophil# 0.26 X10^3/uL; Eosinophils% 1.3 % (0-5); Hematocrit 40.6 % (40-54); Hemoglobin 13.8 g/dL (13.0-16.5); Lymphocyte # 14.85 X10^3/ul (0.83-4.51); Lymphocyte % 72.7 % (19-41); Mean Corpuscular Hgb 30.4 pg (27.0-32.0); Mean Corpuscular Volume 89.4 fL (80-94); Mean Platelet Vol. 10.6 fl (6.2-12.0); Monocyte# 0.67 X10^3/uL; Monocyte% 3.3 % (0-10); NRBC Flagged by Analyzer 0 % (0-5); Neutrophil # 4.54 X10^3/uL (2.7-7.7); Neutrophil % 22.2 % (47-70); POSITIVE DIFFERENTIAL YES; Platelet Count 208 K/mm3 (150-450); RBC Distribution Width CV 12.4 % (11.6-14.6); RBC Distribution Width SD 40.4 fl (35.1-43.9); Red Blood Count 4.54 M/mm3 (4.6-6.2); White Blood Count 20.4 K/mm3 (4.4-11.0)
[2023-03-03 17:39] LABS: Differential Indicated SCAN CRITERIA MET
[2023-03-03 17:43] LABS: Color, Urine Yellow (Yellow); Glucose, Dipstick Normal (Normal); Ketone-Dipstick 5 mg/dl (Negative); Leukocyte Esterase-Dipstick 25 /ul (Negative); Nitrite-Dipstick Negative (Negative); Occult Blood-Urine 10 /ul (Negative); Protein-Dipstick 30 mg/dl (Negative); Urine Bilirubin Dipstick 1 mg/dL (Negative); Urine Clarity Clear (Clear); Urine Urobilinogen 1 mg/dl (Normal)
[2023-03-03 18:02] LABS: Differential Comment SCANNED
[2023-03-03 18:15] LABS: ALB/GLOB Ratio 1.2 RATIO (0.9-2.4); AST(SGOT) 23 U/L (15-37); Alanine Aminotransfer ALT/SGPT 44 U/L (16-61); Albumin, Serum 3.8 g/dL (3.2-5.0); Alkaline Phosphatase 149 U/L (45-117); Anion Gap 7 (5-15); BUN 14 mg/dL (7-18); BUN/Creat Ratio 13.7 RATIO (10-20); Calcium,Total 8.9 mg/dL (8.5-10.1); Chloride 107 mmol/L (98-107); Cholesterol 179 mg/dL (200); Creatinine, Serum 1.02 mg/dL (0.70-1.30); EST Glomerular Filtration Rate 80 mL/min (>60); Est Glom Filt Rate - Afr Amer 97 mL/min (>60); Globulin 3.2 g/dL (2.2-4.2); Glucose 107 mg/dL (74-106); High Density Lipoprotein 29 mg/dL; Magnesium 2.4 mg/dL (1.6-2.6); Potassium 3.7 mmol/L (3.5-5.1); Sodium Level 138 mmol/L (136-145); Thyroid Stim Hormone (TSH) 1.19 uIU/mL (0.358-3.74); Triglycerides 593 mg/dL
== END | disposition home or self-care (01) ==
LOC: MFPLAB 16:30
PROVIDERS: PCP Family Medicine; Visit Provider Family Medicine
DX: I10 Essential (primary) hypertension (principal)
CPT/HCPCS: 36415; 80053; 80061; 81001; 83735; 84443; 85025

== ENCOUNTER → 2023-03-10 | Outpatient (CLI) | payer OTHER, SELFPAY ==
--- OUTSIDE RECORDS SUMMARY | 2023-03-10 11:54 | XMS RPT_ITS | CCD ---
Author Name Unknown Address [address] [place] [address] Organization [facility] Care Team Providers Care Plumbing Designer Name Role Phone Unavailable Primary Care Provider John Turner MD Unavailable [phone] JOHN LONG Referring Unavailable SHIREEN HAY Referring [...] 97.81 [degF] John Long MD Work Phone: [facility] 10-06-2022 14:14-0400 Body weight 85.96 kg John Long MD Work Phone: [facility] 10-06-2022 14:14-0400 Diastolic blood pressure 86 mm[Hg] John Long MD Work Phone: [facility] 10-06-2022 14:14-0400 Heart rate 59 /min John Long MD Work Phone: [facility] 10-06-2022 14:14-0400 SaO2% (BldA) [Mass fraction] 96 % John Long MD Work Phone: [facility] 10-06-2022 14:14-0400 Systolic blood pressure 139 mm[Hg] John Long MD Work Phone: [facility] 06-17-2022 09:25-0400 Body height 172.7 cm Shireen Hay MD Work Phone: [facility] 06-17-2022 09:25-0400 Body temperature 97.81 [degF] Shireen Hay MD Work Phone: [facility] 06-17-2022 09:25-0400 Body weight 87.32 kg Shireen Hay MD Work Phone: [facility] 06-17-2022 09:25-0400 Diastolic blood pressure 91 mm[Hg] Shireen Hay MD Work Phone: [facility] 06-17-2022 09:25-0400 Heart rate 51 /min Shireen Hay MD Work Phone: [facility] 06-17-2022 09:25-0400 Systolic blood pressure 166 mm[Hg] Shireen Hay MD Work Phone: [facility] Encounters Encounter Date Encounter Type Care Provider Facility Start: 01-20-2023 End: 01-20-2023 ambulatory JOHN LONG Facility:[facility] Start: 01-20-2023 End: 01-20-2023 ambulatory John Long MD Work Phone: Hematology/Oncology Procedures Date Procedure Procedure Detail Performing Clinician Start: 06-24-2022 Ct abdomen & pelvis w/contrast material Shireen Hay MD Work Phone: Start: 06-24-2022 Ct thorax w/contrast material Shireen Hay MD Work Phone: Plan of Treatment Date Care Activity Detail Author Start: 01-18-2024 Influenza vaccination Lung Cancer [facility] Start: 06-25-2023 Influenza vaccination LUNG CANCER [facility] Start: 01-06-2023 End: 11-05-2023 Ct thorax w/o contrast material CT CHEST WO IVCON Radiology Routine Lung nodules Expected: 01/06/2023, Expires: 11/05/2023 [facility] Work Phone: Payers Date Payer Category Payer Private Health Insurance [facility] [id number] 2022-Present [phone] [address] [place] [address] HMO [id number] 2022 Unknown [id number] Social History Date Type Detail Facility [facility] consumption unknown [facility] Work Phone: Start: 1965 Sex Assigned At Not on file [facility] Start: 06-17-2022 [facility] End: 05-14-2022 History of tobacco use Current smoker [facility] End: 05-14-2022 History of tobacco use Cigarette Smoker [facility] Start: 06-17-2022 End: 06-24-2022 Cigarettes smoked current (pack per day) - Reported 1 [facility] Start: 06-17-2022 Tobacco use and exposure Smokeless tobacco non-user [facility] Start: 10-06-2022 End: 01-20-2023 Alcohol intake Current drinker of alcohol (finding) [facility] Start: 06-24-2022 End: 10-06-2022 Tobacco use panel [facility] Adult Depression Screening Assessment 0 [facility] Start: 10-06-2022 [facility] Start: 1965 Sex Assigned At Male C [facility] Start: 06-20-2022 Gender identity Identifies as male gender (finding) [facility] Start: 06-20-2022 Sexual orientation Heterosexual (fin ding) [facility] Clinical Notes 06-08-2022 to 01-20-2023 John Long MD - 01/20/2023 3:12 PM Bhumi Cruz LPN - 01/20/2023 2:[address] [facility] Anjali Strange RT(R) - 01/17/2023 4:00 PM John Olivo MD - 10/06/2022 2:27 PM EDT Note Date & Type Note Facility 01-20-2023 Note HNO ID: [id number] Author: John Long MD Service: ? Author [...] which included preparing to see the patient, [id number] patient care, completing clinical documentation, obtaining and/or reviewing separately obtained history, performing a medically appropriate examination, counseling and educating the patient/family/caregiver, ordering medications, tests, or procedures, independently interpreting results (not separately reported), and communicating results to the patient/family/caregiver. Electronically Signed: John Long MD January 20, 2023 [facility] 01-20-2023 History of Present illness Narrative (Elements [...] which included preparing to see the patient, [id number] patient care, completing clinical documentation, obtaining and/or reviewing separately obtained history, performing a medically appropriate examination, counseling and educating the patient/family/caregiver, ordering medications, tests, or procedures, independently interpreting results (not separately reported), and communicating results to the patient/family/caregiver. Electronically Signed: John Long MD January 20, 2023 documented in this encounter [facility] 01-20-2023 Nurse Note Est. Pt. Discuss recent CT scan and lab results. Bhumi Garcia LPN documented in this encounter [facility] 01-17-2023 Miscellaneous Notes Radiology Service Progress Note [...] 2023 4:13 PM documented in this encounter [facility] 10-06-2022 Note HNO ID: [id number] Author: John Long MD Service: ? Author Type: Physician Type: Progress Notes Filed: 10/06/2022 4:31 PM Note Text: HISTORY OF PRESENT ILLNESS: Marco A Bray [...] which included preparing to see the patient, [id number] patient care, completing clinical documentation, obtaining and/or reviewing separately obtained history, performing a medically appropriate examination, counseling and educating the patient/family/caregiver, ordering medications, tests, or procedures, independently interpreting results (not separately reported), and communicating results to the patient/family/caregiver. Electronically Signed: John Long MD October 06, 2022 2:27 PM [facility] 10-06-2022 History of Present illness Narrative HISTORY [...] which included preparing to see the patient, [id number] patient care, completing clinical documentation, obtaining and/or reviewing separately obtained history, performing a medically appropriate examination, counseling and educating the patient/family/caregiver, ordering medications, tests, or procedures, independently interpreting results (not separately reported), and communicating results to the patient/family/caregiver. Electronically Signed: John Long MD October 06, 2022 2:27 PM documented in this encounter [facility] 07-08-2022 Note HNO ID: [id number] Author: Shireen Hay MD Service: ? Author Type: Physician Type: Progress Notes Filed: 07/08/2022 2:38 PM Note Text: [facility] Progress Note SERVICE DATE: July 08, [...] FLOW CYTOMETRY PERIPHERAL BLOOD LEUK/LYMPH (FCLEUK) REFLEX: [id number] Order: [id number] - Reflex for Order [id number] Collected 06/17/2022 10:24 AM Status: Final result [...] cc: No primary care provider on file. [facility] 06-24-2022 Note HNO ID: [id number] Author: RT Damir(R) Service: ? Author Type: Field Test Engineer Type: Progress Notes Filed: 06/24/2022 4:14 PM [...] DATE: June 24, 2022 TIME: 4:14 PM [facility] 06-24-2022 History of Present illness Narrative Radiology [...] TIME: 4:14 PM documented in this encounter [facility] 06-17-2022 Note HNO ID: [id number] Author: Shireen Hay MD Service: ? Author Type: Physician Type: Progress Notes Filed: 06/17/2022 11:04 AM Note Text: [facility] Hematology Consult Note SERVICE DATE: June [...] and lymphocytes. Therefore he is referred to [facility] for further evaluation. Clinically he has been [...] and medical recor (more content not included)... [facility] 06-17-2022 History of Present illness Narrative Images from the original note were not included. [facility] Hematology Consult Note SERVICE DATE: June [...] and lymphocytes. Therefore he is referred to [facility] for further evaluation. Clinically he has been [...] and greater than 50% total dedicated to curl-xu-ydip counseling and patient care coordination. Shireen Hay MD cc: No primary care provider on file. documented in this encounter [facility] 06-08-2022 Miscellaneous Notes Patient returned call and [...] review. Leydi Jacob LPN Spouse called stating [facility] was to send referral a week ago to office - dx - leukemia. Please advise if we received referral. Patient is getting anxious. documented in this encounter [facility] documented [facility] Lung nodules- Primary Other nonspecific abnormal finding of lung field CLL (chronic lymphocytic leukemia) (HCC) Chronic lymphoid leukemia, without mention of having achieved remission [facility] Lung [facility] Other nonspecific abnormal finding of lung field [facility] CLL (chronic lymphocytic leukemia) (HCC)- Primary Chronic lymphoid leukemia, without mention of having achieved remission documented in this encounter [facility] Reason for Referral Specialty Diagnoses / Procedures Referred By Jorge t Referred To Contact CT IMAGING Diagnoses Lymphoblastic lymphoma, unspecified body region (HCC) Procedures CT CHEST W IVCON DIAGNOSTIC COMPUTED TOMOGRAPHY THORAX W/CONTRAST Shireen Hay MD [address] [email or web address] [address] Ct Imaging Referral ID Status Reason Start Date Expiration Date Visits Requested Visits Authorized [id number] Authorized Auto-Generat ed Referral 06/17/2022 07/17/2023 1 1 Specialty Diagnoses / Procedures Referred By Jorge cavanaugh Referred To Contact CT IMAGING Diagnoses Lymphoblastic lymphoma, unspecified body region (HCC) Procedures CT ABD/PEL W IVCON CT ABD & PELVIS W/CONTRAST Shireen Hay MD [address] [place] [address] Ct Imaging Referral ID Status Reason Start Date Expiration Date Visits Requested Visits Authorized [id number] Authorized Auto-Generat ed Referral 06/17/2022 07/17/2023 1 1 Specialty Diagnoses / Procedures Referred By Contac t Referred To Contact CT IMAGING Diagnoses Lung nodules Procedures CT CHEST WO IVCON DIAGNOSTIC COMPUTED TOMOGRAPHY THORAX W/[place] [address] [place] [address] [address] [facility] [place] [address] Referral ID Status Reason Start Date Expiration Date Visits Requested Visits Authorized [id number] Authorized Auto-Generat ed Referral 11/05/2023 1 1 Specialty Diagnoses / Procedures Referred By Contac t Referred To Contact CT IMAGING Diagnoses Lymphoblastic lymphoma, unspecified body region (HCC) Procedures CT CHEST W IVCON DIAGNOSTIC COMPUTED TOMOGRAPHY THORAX W/CONTRAST Shireen Hay MD [address] [place] [address] Ct [facility] [place] [address] Referral ID Status Reason Start Date Expiration Date V isits Requested Visits Authorized [id number] Closed Auto-Generate d Referral 06/17/2022 07/17/2023 1 1 Specialty Diagnoses / Procedures Referred By Contac t Referred To Contact CT IMAGING Diagnoses Lymphoblastic lymphoma, unspecified body region (HCC) Procedures CT ABD/PEL W IVCON CT ABD & PELVIS W/CONTRAST Shireen Hay MD [address] [place] [address] Ct [facility] [place] [address] Referral ID Status Reason Start Date Expiration Date V isits Requested Visits Authorized [id number] Closed Auto-Generate d Referral 06/17/2022 07/17/2023 1 [...] or prosecute any alcohol or drug abuse patient.[facility] the event this information is protected by the Federal Confidentiality of Alcohol and Drug Abuse Patient Records regulations: The Federal rules restrict any use of the information to criminally investigate or prosecute any alcohol or drug abuse patient.[facility] the event this information is protected by the Federal Confidentiality of Alcohol and Drug Abuse Patient Records regulations: The Federal rules restrict any use of the information to criminally investigate or prosecute any alcohol or drug abuse patient.[facility] the event this information is protected by the Federal Confidentiality of Alcohol and Drug Abuse Patient Records regulations: The Federal rules restrict any use of the information to criminally investigate or prosecute any alcohol or drug abuse patient.[facility] the event this information is protected by the Federal Confidentiality of Alcohol and Drug Abuse Patient Records regulations: The Federal rules restrict any use of the information to criminally investigate or prosecute any alcohol or drug abuse patient.[facility] the event this information is protected by the Federal Confidentiality of Alcohol and Drug Abuse Patient Records regulations: The Federal rules restrict any use of the information to criminally investigate or prosecute any alcohol or drug abuse patient.[facility] the event this information is protected by the Federal Confidentiality of Alcohol and Drug Abuse Patient Records regulations: The Federal rules restrict any use of the information to criminally investigate or prosecute any alcohol or drug abuse patient.[facility] the event this information is protected by the Federal Confidentiality of Alcohol and Drug Abuse Patient Records regulations: The Federal rules restrict any use of the information to criminally investigate or prosecute any alcohol or drug abuse patient.[facility] Reason for Visit (unrecogniz ed section and content) Reason Comments New Patient Evaluation Reason Comments Established Patient Reason Comments Radiology CT Specialty Diagnoses / Procedures Referred By Contac t Referred To Contact CT IMAGING Diagnoses Lymphoblastic lymphoma, unspecified body region (HCC) Procedures CT CHEST W IVCON DIAGNOSTIC COMPUTED TOMOGRAPHY THORAX W/CONTRAST Shireen Hay MD [address] [place] [address] [place] [address] Referral ID Status Reason Start Date Expiration Date V isits Requested Visits Authorized [id number] Closed Auto-Generate d Referral 06/17/2022 07/17/2023 1 1 Specialty Diagnoses / Procedures Referred By Contac t Referred To Contact CT IMAGING Diagnoses Lung nodules Procedures CT CHEST WO IVCON DIAGNOSTIC COMPUTED TOMOGRAPHY THORAX W/[place] [address] [place] [address] [address] [facility] [place] [address] Referral ID Status Reason Start Date Expiration Date V isits Requested Visits Authorized [id number] Closed Auto-Generate d Referral 01/06/2023 11/05/2023 1 1 Reason Comments Established Patient Care Teams (unrecognized sec tion and content) Plumbing Designer Relationship Specialty Start Date End Date John Long MD [address] [place], [place] [id number] Hematology/Oncology 10/06/22 Plumbing Designer Relationship Specialty Start Date End Date John Long MD [address] [facility] [place], [place] [id number] Hematology/Oncology 10/06/22 (unrecognized sect ion and content) No Status Records FoundNo Status Records Found INFORMATION SOURCE (unrecogn ized section and content) DATE CREATED AUTHOR AUTHOR'S ORGANIZ ATION 01/23/2023 [facility] FOR RECORDS PERTAINING TO PATIENTS WHO ARE [...] BE BASED ON THE PRIMARY CLINICAL RECORDS. [facility]. provides no warranty or guarantee of the accuracy or completeness of information in this document.
[2023-03-10 16:00] LABS: Anion Gap 5 (5-15); BUN 20 mg/dL (7-18); BUN/Creat Ratio 18.9 RATIO (10-20); Calcium,Total 9.1 mg/dL (8.5-10.1); Chloride 110 mmol/L (98-107); Cholesterol 157 mg/dL (200); Creatinine, Serum 1.06 mg/dL (0.70-1.30); EST Glomerular Filtration Rate 77 mL/min (>60); Est Glom Filt Rate - Afr Amer 93 mL/min (>60); Glucose 90 mg/dL (74-106); High Density Lipoprotein 34 mg/dL; Potassium 3.8 mmol/L (3.5-5.1); Sodium Level 140 mmol/L (136-145); Triglycerides 308 mg/dL; Very Low Density Lipoprotein 62 mg/dL (5-40)
== END | disposition home or self-care (01) ==
LOC: MTLAB 11:29
PROVIDERS: PCP Family Medicine; Referring Provider Family Medicine; Visit Provider Family Medicine
DX: R73.09 Other abnormal glucose (principal)
CPT/HCPCS: 36415; 80048; 80061

== ENCOUNTER → 2023-09-04 | Outpatient (CLI) | payer OTHER, SELFPAY ==
[2023-09-04 14:35] LABS: Bacteria 0 SEEN /hpf (None Seen); Mucous, Urine 0 SEEN /hpf (<or=2+); Red Blood Cells-Urine 0 SEEN /hpf (0-5); Squamous Epithelial Cells - UA 0 SEEN /hpf (0-5); White Blood Cells 0 SEEN /hpf (0-5)
[2023-09-04 17:45] LABS: Absolute Lymphocyte Count 11.26 X10^3/uL (0.83-4.51); Absolute Neutrophil Count 5.1 X10^3/uL (2.0-7.7); Basophil# 0.04 X10^3/uL; Basophil% 0.2 % (0-1); Eosinophils% 1.1 % (0-5); Hemoglobin 13.2 g/dL (13.0-16.5); Lymphocyte # 11.26 X10^3/ul (0.83-4.51); Lymphocyte % 64.6 % (19-41); Mean Corp Hgb Conc 33.8 g/dL (32-36); Mean Corpuscular Hgb 30.5 pg (27.0-32.0); Mean Corpuscular Volume 90.1 fL (80-94); Mean Platelet Vol. 11.1 fl (6.2-12.0); Monocyte# 0.78 X10^3/uL; Monocyte% 4.5 % (0-10); NRBC Flagged by Analyzer 0 % (0-5); Neutrophil # 5.11 X10^3/uL (2.7-7.7); Neutrophil % 29.3 % (47-70); POSITIVE DIFFERENTIAL YES; Platelet Count 162 K/mm3 (150-450); RBC Distribution Width CV 12.7 % (11.6-14.6); RBC Distribution Width SD 41.8 fl (35.1-43.9); Red Blood Count 4.33 M/mm3 (4.6-6.2); White Blood Count 17.4 K/mm3 (4.4-11.0)
[2023-09-04 18:01] LABS: Differential Indicated SCAN CRITERIA MET
[2023-09-04 18:04] LABS: ALB/GLOB Ratio 1.1 RATIO (0.9-2.4); AST(SGOT) 25 U/L (15-37); Alanine Aminotransfer ALT/SGPT 33 U/L (16-61); Albumin, Serum 3.6 g/dL (3.2-5.0); Alkaline Phosphatase 108 U/L (45-117); Anion Gap 5 (5-15); BUN 12 mg/dL (7-18); BUN/Creat Ratio 12.4 RATIO (10-20); Calcium,Total 8.9 mg/dL (8.5-10.1); Chloride 104 mmol/L (98-107); Cholesterol 147 mg/dL (200); Creatinine, Serum 0.97 mg/dL (0.70-1.30); EST Glomerular Filtration Rate 85 mL/min (>60); Est Glom Filt Rate - Afr Amer 103 mL/min (>60); Globulin 3.4 g/dL (2.2-4.2); Glucose 94 mg/dL (74-106); High Density Lipoprotein 38 mg/dL; PSA,Total - Annual Screen 0.51 ng/mL (0.00-4.00); Potassium 3.8 mmol/L (3.5-5.1); Sodium Level 135 mmol/L (136-145); Triglycerides 309 mg/dL; Very Low Density Lipoprotein 62 mg/dL (5-40)
[2023-09-04 18:12] LABS: Color, Urine Straw (Yellow); Glucose, Dipstick Normal (Normal); Ketone-Dipstick Negative (Negative); Leukocyte Esterase-Dipstick Negative /ul (Negative); Nitrite-Dipstick Negative (Negative); Occult Blood-Urine Negative /ul (Negative); Protein-Dipstick Negative (Negative); Specific Gravity, Urine 1.005 (1.002-1.030); Urine Bilirubin Dipstick Negative (Negative); Urine Clarity Clear (Clear); Urine Urobilinogen Normal (Normal)
[2023-09-04 18:27] LABS: Anisocytosis RARE; Macrocytosis RARE; Platelet Estimate ADEQUATE (ADEQ); Platelet Morphology LARGE; Red Cell Morphology N CHROM NORMAL (NORM C&C)
== END | disposition home or self-care (01) ==
LOC: MFPLAB 14:33
PROVIDERS: PCP Family Medicine; Visit Provider Family Medicine
DX: I10 Essential (primary) hypertension (principal); Z12.5 Encounter for screening for malignant neoplasm of prostate
CPT/HCPCS: 36415; 80053; 80061; 81001; 83735; 84153; 84443; 85025; G0103

== ENCOUNTER 2023-12-11 15:50 | Outpatient (CLI) | payer OTHER, SELFPAY ==
--- NOTE | 2023-12-11 15:55 | CT_ITS ---
STUDY: LOW DOSE CT LUNG CANCER SCREENING REASON FOR EXAM: Male, 58 years old. Nicotine dependence, unspecified, CLL in remission. Patient smoked 1 pack per day for 35 years. RADIATION DOSAGE (If Supplied By Facility): CTDIvol = ( 3.02 ) mGy, DLP = ( 108.35 ) mGycm TECHNIQUE: No contrast was administered. Low dose technique was utilized (average mAS-38 and kVp 120). 1.25 mm axial source images with a slice interval of 1.25-mm were reconstructed in lung windows. 2.5 mm axial source images with a slice interval of 2.5-mm were reconstructed in lung windows. 5.0 mm axial source images with a slice interval of 5.0-mm were reconstructed in soft tissue windows. COMPARISON: Comparison is made with prior study May 12, 2022. NODULES: No suspicious nodules are seen. Emphysema: Minimal scarring at the right lung base. Endobronchial lesion: None Aorta: Unremarkable CORONARY ARTERIES: Mild Coronary artery calcification is seen. Heart: Unremarkable Pulmonary artery: Unremarkable Mediastinal nodes: Unremarkable Other chest and abdominal findings: CT/Low Dose CT Lung Screening IMPRESSION: Lung-RADS category 2 - Continue annual screening with LDCT in 12 months. IMPORTANT NOTES FOR USE: ACR Lung-RADS Version 1.1 Assessment Categories Release Date: 2018 Category: Coded 0-4 bases on nodule(s) with highest degree of suspicion. Negative screen is defined as categories 1 and 2; a positive screen is defined as categories 3 and 4. Category 3 and 4A nodules that are unchanged on interval CT should be coded as category 2, and individuals returned to screening in 12 months. Category 4X: Category 3 or 4 nodules with additional imaging findings that increase the suspicion of lung cancer, such as spiculation, GGN that doubles in size in 1 year, enlarged lymph notes, etc. Category Modifiers: S (significant finding unrelated to lung cancer) Electronically Signed: Juan Manuel Rivas MD at 13:39 EDT ,
== END 2023-12-11 23:59 | disposition home or self-care (01) ==
PROVIDERS: PCP Family Medicine; Referring Provider Family Medicine; Visit Provider Family Medicine
DX: F17.201 Nicotine dependence, unspecified, in remission (principal); Z12.2 Encounter for screening for malignant neoplasm of respiratory organs
CPT/HCPCS: 71271